=== PATIENT | female | born 1975 | race Hispanic/Latino ===

== ENCOUNTER 2020-09-26 17:50 | Emergency (ER) | payer MEDICAID ==
[~2020-09-26] VITALS: Ht 157.5 cm; Wt 77.1 kg
[2020-09-26 17:52] VITALS: BP 147/80
[2020-09-26] MEDS ORDERED: TETANUS/DIPHTHERIA TOXOID [ADULT] 0.5 ML VIAL IM ONE (18:15)
[2020-09-26] MEDS ORDERED: CEPHALEXIN 500 MG CAPSULE PO SCH (18:15)
[2020-09-26] MEDS ORDERED: HYDROCODONE/ACETAMINOPHEN 5/325 MG TAB PO ONE (18:30)
[2020-09-26] MEDS ORDERED: CEPH500B PO (19:41)
[2020-09-26 19:45] VITALS: BP 138/77
== END 2020-09-26 19:50 | disposition home or self-care (01) ==
LOC: EDH 17:50
DX: S61.012A Laceration without foreign body of left thumb without damage to nail, initial encounter (principal); I10 Essential (primary) hypertension; E78.00 Pure hypercholesterolemia, unspecified; E11.9 Type 2 diabetes mellitus without complications; F32.9 Major depressive disorder, single episode, unspecified; F41.9 Anxiety disorder, unspecified; Z98.890 Other specified postprocedural states; W26.8XXA Contact with other sharp object(s), not elsewhere classified, initial encounter; Y93.89 Activity, other specified; Y92.89 Other specified places as the place of occurrence of the external cause; Y99.8 Other external cause status
CPT/HCPCS: 12001; 73140; 90471; 90714

== ENCOUNTER 2021-06-11 21:40 | Inpatient (IN) | payer MEDICAID ==
[~2021-06-11] VITALS: Ht 157.5 cm; Wt 70.2 kg
[~2021-06-11 21:40] MED LIST: CEPH500B PO
[2021-06-11 22:17] LABS: APPEARANCE,URINE Clear (CLEAR); BILIRUBIN,URINE Negative (NEGATIVE); COLOR,URINE Yellow (YELLOW); GLUCOSE, URINE (UA) Negative (NEGATIVE); KETONES,URINE Negative (NEGATIVE); LEUKOCYTE ESTERASE ,URINE Small (NEGATIVE); NITRATE,URINE Negative (NEGATIVE); OCCULT BLOOD,URINE Small (NEGATIVE); PROTEIN,URINE Trace mg/dL (NEGATIVE); UROBILINOGEN,URINE 0.2 mg/dL (0.2-1.0)
[2021-06-11 22:22] LABS: HCG,QUAL RESULT NEGATIVE (NEGATIVE)
[2021-06-11] MEDS ORDERED: KETOROLAC 15MG/ML VIAL (15MG/ML) IV ONE (22:30)
[2021-06-11] MEDS ORDERED: ONDANSETRON 4MG INJ IVP ONE (22:30)
[2021-06-11] MEDS ORDERED: 0.9%NACL 1000ML 1,000 ML IV ONE (22:30)
[2021-06-11] MEDS ORDERED: MORPHINE 4 MG SYG IV ONE (22:30)
[2021-06-11 22:34] LABS: BASOPHILS % (AUTO) 0.4 % (0.0-5.0); EOSINOPHILS % (AUTO) 2.9 % (0.0-8.0); HEMATOCRIT 44.2 % (36-48); LYMPHOCYTES % (AUTO) 25.1 % (21.0-51.0); MEAN CORPUSCULAR HEMOGLOBIN 27.5 pg (27.0-33.0); MEAN CORPUSCULAR HGB CONC 32.8 g/dL (32.0-36.0); MEAN CORPUSCULAR VOLUME 83.9 fL (79-99); MONOCYTES % (AUTO) 7.3 % (3.0-13.0); NEUTROPHILS % (AUTO) 63.5 % (40.0-77.0); PLATELET COUNT (AUTO) 262 K/uL (130-400); RED BLOOD CELL COUNT(AUTO) 5.27 MIL/uL (4.00-5.50); RED CELL DISTRIBUTION WIDTH 13.9 % (11.0-15.5)
[2021-06-11 22:34] LABS: BACTERIA,URINE None Seen /HPF (None Seen); MUCUS,URINE Few LPF (None Seen); RBC,URINE 0-1 /HPF (0-1); SQUAMOUS EPITHELIAL CELL,UR Few /HPF (0-2)
[2021-06-11 22:46] LABS: CREATININE 0.9 mg/dL (0.5-1.5); POTASSIUM 3.9 mmol/L (3.5-5.1)
[2021-06-11 22:50] LABS: ALBUMIN 4.5 g/dL (3.5-5.0); BILIRUBIN,TOTAL 0.2 mg/dL (0.2-1.0); TOTAL PROTEIN, SERUM 7.9 g/dL (6.0-8.3)
[2021-06-12] MEDS ORDERED: CEFTRIAXONE 1G VIAL IV ONE
[2021-06-12] MEDS ORDERED: ACETAMINOPHEN 325 MG TAB PO PRN (01:30)
[2021-06-12] MEDS ORDERED: ONDANSETRON 4MG INJ IV PRN (01:30)
[2021-06-12] MEDS: 0.9%NACL 1000ML 1,000 ML IV SCH ×2 (01:39→14:18)
[2021-06-12] MEDS ORDERED: DULA0.75 SQ (02:02)
[2021-06-12] MEDS ORDERED: ATOR10 PO (02:02)
[2021-06-12] MEDS ORDERED: LISI10TA24 PO (02:02)
[2021-06-12] MEDS ORDERED: FENO40TA4 PO (02:02)
[2021-06-12] MEDS ORDERED: METF-446 PO (02:02)
[2021-06-12] MEDS ORDERED: OMEP10CA5 PO (02:02)
[2021-06-12] MEDS ORDERED: INSU100I13 SQ ×2 (03:12)
[2021-06-12 03:13] VITALS: BP 128/76
[2021-06-12] MEDS: CEFTRIAXONE 1G VIAL IVP SCH (03:30)
[2021-06-12] MEDS: MORPHINE 4 MG SYG IV PRN ×3 (04:20→23:14)
[2021-06-12 05:32] LABS: BASOPHILS % (AUTO) 0.3 % (0.0-5.0); EOSINOPHILS % (AUTO) 2.7 % (0.0-8.0); HEMATOCRIT 37.9 % (36-48); LYMPHOCYTES % (AUTO) 25.6 % (21.0-51.0); MEAN CORPUSCULAR HEMOGLOBIN 27.9 pg (27.0-33.0); MEAN CORPUSCULAR VOLUME 84.6 fL (79-99); NEUTROPHILS % (AUTO) 62.7 % (40.0-77.0); PLATELET COUNT (AUTO) 202 K/uL (130-400); RED BLOOD CELL COUNT(AUTO) 4.48 MIL/uL (4.00-5.50)
[2021-06-12 05:51] LABS: MAGNESIUM 1.6 mg/dL (1.80-2.40); PHOSPHORUS 3.9 mg/dL (2.5-4.9); POTASSIUM 4.3 mmol/L (3.5-5.1)
[2021-06-12 05:58] LABS: INR 0.99 (0.85-1.15); PROTHROMBIN TIME 10.8 SEC (9.6-11.6)
[2021-06-12 05:59] LABS: PARTIAL THROMBOPLASTIN TIME 24.8 SEC (26.3-35.5)
[2021-06-12 06:26] LABS: HEMOGLOBIN A1C 6.9 % (4.0-6.0)
[2021-06-12 08:00] VITALS: BP 100/54
[2021-06-12] MEDS: FAMOTIDINE 20MG VIAL IV SCH ×2 (08:52→20:44)
[2021-06-12 12:00] VITALS: BP 113/67
[2021-06-12 17:49] VITALS: BP 114/56
[2021-06-12 19:00] VITALS: BP 123/42
[2021-06-13] VITALS: BP 126/61
[2021-06-13] MEDS: CEFTRIAXONE 1G VIAL IVP SCH (02:56)
[2021-06-13] MEDS: 0.9%NACL 1000ML 1,000 ML IV SCH ×2 (02:56→07:30)
[2021-06-13 04:00] VITALS: BP 109/57
[2021-06-13 04:59] LABS: HEMATOCRIT 36.6 % (36-48); MEAN CORPUSCULAR HEMOGLOBIN 27.5 pg (27.0-33.0); MEAN CORPUSCULAR HGB CONC 32.5 g/dL (32.0-36.0); MEAN CORPUSCULAR VOLUME 84.5 fL (79-99); RED BLOOD CELL COUNT(AUTO) 4.33 MIL/uL (4.00-5.50); RED CELL DISTRIBUTION WIDTH 13.9 % (11.0-15.5)
[2021-06-13 05:09] LABS: CREATININE 0.8 mg/dL (0.5-1.5); POTASSIUM 3.4 mmol/L (3.5-5.1)
[2021-06-13] MEDS: MORPHINE 4 MG SYG IV PRN (05:42)
[2021-06-13 07:30] VITALS: BP 106/61
[2021-06-13] MEDS ORDERED: IOHEXOL 350 MG/ML 100ML INFUS..BTL IV ONE (07:36)
[2021-06-13] MEDS: FAMOTIDINE 20MG VIAL IV SCH ×2 (09:18→21:20)
[2021-06-13 11:00] VITALS: BP 119/68
[2021-06-13] MEDS ORDERED: LIDOCAINE HCL-MPF 1% 2ML VIAL IV PRN (12:00)
[2021-06-13] MEDS ORDERED: POTASSIUM CHLORIDE 10% ELIXIR 20 MEQ/15 ML UDCUP PO PRN (12:00)
[2021-06-13] MEDS ORDERED: MAGNESIUM 2GM PREMIX 50ML 50 ML IV PRN (12:00)
[2021-06-13] MEDS ORDERED: POTASSIUM CHLORIDE 20MEQ/100ML 100 ML IV PRN (12:00)
[2021-06-13] MEDS: MORPHINE 2 MG SYG IV PRN (13:54)
[2021-06-13] MEDS: KCL 20 MEQ ERTAB PO PRN (15:34)
[2021-06-13 16:00] VITALS: BP 116/62
[2021-06-13 20:00] VITALS: BP 131/73
[2021-06-14] VITALS (16 sets, daily range): BP systolic 103–129; BP diastolic 58–84
[2021-06-14] MEDS: MORPHINE 4 MG SYG IV PRN (00:09)
[2021-06-14] MEDS: 0.9%NACL 1000ML 1,000 ML IV SCH ×4 (00:18→23:30)
[2021-06-14] MEDS: KCL 20 MEQ ERTAB PO PRN (01:00)
[2021-06-14] MEDS: CEFTRIAXONE 1G VIAL IVP SCH (03:24)
[2021-06-14 05:04] LABS: HEMATOCRIT 37.5 % (36-48); MEAN CORPUSCULAR HEMOGLOBIN 26.9 pg (27.0-33.0); MEAN CORPUSCULAR HGB CONC 31.7 g/dL (32.0-36.0); MEAN CORPUSCULAR VOLUME 84.8 fL (79-99); RED BLOOD CELL COUNT(AUTO) 4.42 MIL/uL (4.00-5.50); RED CELL DISTRIBUTION WIDTH 13.9 % (11.0-15.5); WHITE BLOOD COUNT (AUTO) 5.6 K/uL (4.8-10.8)
[2021-06-14 05:30] LABS: INR 1.05 (0.85-1.15); PROTHROMBIN TIME 11.4 SEC (9.6-11.6)
[2021-06-14 05:31] LABS: PARTIAL THROMBOPLASTIN TIME 23.7 SEC (26.3-35.5)
[2021-06-14 05:32] LABS: CREATININE 0.9 mg/dL (0.5-1.5); MAGNESIUM 1.9 mg/dL (1.80-2.40); POTASSIUM 4.5 mmol/L (3.5-5.1)
[2021-06-14] MEDS ORDERED: IOHEXOL-350 75 ML VIAL IV ONE (08:53)
[2021-06-14] MEDS ORDERED: FENTANYL CITRATE PF 50 MCG/1 ML 2ML VIAL ONE ×2 (08:53→10:17)
[2021-06-14] MEDS ORDERED: HEPARIN 10,000 UNIT/10ML (1,000 UNIT/ML) VIAL ONE (08:53)
[2021-06-14] MEDS ORDERED: MIDAZOLAM HCL 1 MG/ML 2ML VIAL ONE ×2 (08:53→10:16)
[2021-06-14] MEDS ORDERED: LIDOCAINE HCL 1% MDV 50ML VIAL ONE (08:54)
[2021-06-14] MEDS: FAMOTIDINE 20MG VIAL IV SCH ×2 (09:00→20:56)
[2021-06-14] MEDS: KETOROLAC 30MG VIAL (30MG/ML) IV PRN ×2 (12:27→22:47)
[2021-06-14] MEDS: MORPHINE 2 MG SYG IV PRN ×2 (14:45→20:47)
[2021-06-15 00:31] VITALS: BP 123/71
[2021-06-15] MEDS: MORPHINE 2 MG SYG IV PRN ×2 (01:20→05:32)
[2021-06-15] MEDS: CEFTRIAXONE 1G VIAL IVP SCH (03:14)
[2021-06-15 04:02] VITALS: BP 110/52
[2021-06-15 04:43] LABS: HEMATOCRIT 36.5 % (36-48); MEAN CORPUSCULAR HEMOGLOBIN 26.9 pg (27.0-33.0); MEAN CORPUSCULAR HGB CONC 32.1 g/dL (32.0-36.0); MEAN CORPUSCULAR VOLUME 83.9 fL (79-99); RED BLOOD CELL COUNT(AUTO) 4.35 MIL/uL (4.00-5.50); RED CELL DISTRIBUTION WIDTH 13.9 % (11.0-15.5); WHITE BLOOD COUNT (AUTO) 6.5 K/uL (4.8-10.8)
[2021-06-15 04:48] LABS: POTASSIUM 4.5 mmol/L (3.5-5.1)
[2021-06-15 07:20] VITALS: BP 107/62
[2021-06-15] MEDS: FAMOTIDINE 20MG VIAL IV SCH (08:12)
[2021-06-15] MEDS: KETOROLAC 30MG VIAL (30MG/ML) IV PRN ×2 (08:13→16:53)
[2021-06-15] MEDS: 0.9%NACL 1000ML 1,000 ML IV SCH ×2 (08:13→16:10)
[2021-06-15 11:30] VITALS: BP_SYST 125; BP_SYST 141; BP_DIAS 56; BP_DIAS 89
[2021-06-15] MEDS: MORPHINE 4 MG SYG IV PRN (12:36)
[2021-06-15 15:30] VITALS: BP 114/66
== END 2021-06-15 17:15 | disposition home or self-care (01) | DRG 465 ==
LOC: EDH 21:40 → EDHIP 21:41 → 3DH 06-12 02:35
PROVIDERS: ADMIT Hospitalist; ATTEND Hospitalist
PROC: 0T9130Z Drainage of Left Kidney with Drainage Device, Percutaneous Approach (ICD-10-PCS; principal; 2021-06-14)
PROC: 0T9030Z Drainage of Right Kidney with Drainage Device, Percutaneous Approach (ICD-10-PCS; 2021-06-14)
DX: N13.2 Hydronephrosis with renal and ureteral calculous obstruction (principal); E11.9 Type 2 diabetes mellitus without complications; E78.5 Hyperlipidemia, unspecified; F43.10 Post-traumatic stress disorder, unspecified; E87.6 Hypokalemia; E83.42 Hypomagnesemia; I10 Essential (primary) hypertension; Z20.822 Contact with and (suspected) exposure to COVID-19; F41.9 Anxiety disorder, unspecified; F32.A Depression, unspecified; Z87.442 Personal history of urinary calculi; Z90.711 Acquired absence of uterus with remaining cervical stump
CPT/HCPCS: 10030; 36415; 50432; 74176; 74400; 80048; 80053; 81001; 81025; 82948; 83036; 83690; 83735; 84100; 84484; 85025; 85027; 85610; 85730; 86850; 86900; 86901; 87070; 87076; 87635; 93005; 99156; 99157; C1729; C1894; C9803; G0378; J0696; J1644; J1885; J2250; J2270; J2405; J3010; J3475; J3490; J7030; Q9967

== ENCOUNTER 2021-06-18 20:17 | Emergency (ER) | payer MEDICAID ==
[~2021-06-18 20:17] MED LIST changes: +ATOR10 PO; -CEPH500B PO; +DULA0.75 SQ; +FENO40TA4 PO; +INSU100I13 SQ; +LISI10TA24 PO; +METF-446 PO; +OMEP10CA5 PO
== END 2021-06-18 21:13 | disposition left against medical advice (07) ==
LOC: EDH 20:17
DX: G89.18 Other acute postprocedural pain (principal); Z53.21 Procedure and treatment not carried out due to patient leaving prior to being seen by health care provider

== ENCOUNTER 2021-06-21 22:03 | Emergency (ER) | payer MEDICAID ==
[~2021-06-21] VITALS: Ht 157.5 cm; Wt 69.4 kg
[2021-06-21 22:27] LABS: APPEARANCE,URINE Turbid (CLEAR); COLOR,URINE Red (YELLOW)
[2021-06-21 22:28] LABS: BILIRUBIN,URINE Small (NEGATIVE); GLUCOSE, URINE (UA) Negative (NEGATIVE); KETONES,URINE Negative (NEGATIVE); LEUKOCYTE ESTERASE ,URINE Moderate (NEGATIVE); NITRATE,URINE Negative (NEGATIVE); OCCULT BLOOD,URINE Large (NEGATIVE); PROTEIN,URINE 300 mg/dL (NEGATIVE); UROBILINOGEN,URINE 0.2 mg/dL (0.2-1.0)
[2021-06-21] MEDS ORDERED: HYDROCODONE/ACETAMINOPHEN 10/325 MG TAB PO ONE (22:30)
[2021-06-21 22:41] LABS: BACTERIA,URINE Few /HPF (None Seen); RBC,URINE >100 /HPF (0-1); SQUAMOUS EPITHELIAL CELL,UR 0-2 /HPF (0-2)
[2021-06-21] MEDS ORDERED: PHEN-847 PO (22:45)
[2021-06-21] MEDS ORDERED: CEPH500B PO (22:45)
[2021-06-21] MEDS ORDERED: CEFTRIAXONE 1G VIAL IM ONE (23:00)
[2021-06-21] MEDS ORDERED: PHENAZOPYRIDINE HCL 200 MG TABLET PO ONE (23:00)
[2021-06-21 23:33] VITALS: BP 119/72
== END 2021-06-21 23:34 | disposition home or self-care (01) ==
LOC: EDH 22:03
DX: T83.092A Other mechanical complication of nephrostomy catheter, initial encounter (principal); N39.0 Urinary tract infection, site not specified; I10 Essential (primary) hypertension; E78.00 Pure hypercholesterolemia, unspecified; E11.9 Type 2 diabetes mellitus without complications; Z79.4 Long term (current) use of insulin; Z79.899 Other long term (current) drug therapy; Y83.8 Other surgical procedures as the cause of abnormal reaction of the patient, or of later complication, without mention of misadventure at the time of the procedure; Y92.89 Other specified places as the place of occurrence of the external cause
CPT/HCPCS: 81001; 87077; 87088; 87186; 96372; 99283; J0696

== ENCOUNTER 2022-02-27 10:15 | Emergency (ER) | payer MEDICAID ==
[~2022-02-27] VITALS: Ht 157.5 cm; Wt 70.3 kg
[~2022-02-27 10:15] MED LIST changes: +CEPH500B PO; +PHEN-847 PO
[2022-02-27 11:37] LABS: BASOPHILS % (AUTO) 0.4 % (0.0-5.0); EOSINOPHILS % (AUTO) 3.7 % (0.0-8.0); HEMATOCRIT 42.3 % (36-48); LYMPHOCYTES % (AUTO) 23.7 % (21.0-51.0); MEAN CORPUSCULAR HEMOGLOBIN 26.1 pg (27.0-33.0); MEAN CORPUSCULAR HGB CONC 31.9 g/dL (32.0-36.0); MEAN CORPUSCULAR VOLUME 81.7 fL (79-99); MONOCYTES % (AUTO) 6.7 % (3.0-13.0); NEUTROPHILS % (AUTO) 64.9 % (40.0-77.0); PLATELET COUNT (AUTO) 236 K/uL (130-400); RED BLOOD CELL COUNT(AUTO) 5.18 MIL/uL (4.00-5.50); RED CELL DISTRIBUTION WIDTH 14.6 % (11.0-15.5); WHITE BLOOD COUNT (AUTO) 7.9 K/uL (4.8-10.8)
[2022-02-27 11:46] LABS: APPEARANCE,URINE CLOUDY (CLEAR); BILIRUBIN,URINE NEGATIVE (NEGATIVE); COLOR,URINE YELLOW (YELLOW); GLUCOSE, URINE (UA) NEGATIVE (NEGATIVE); KETONES,URINE NEGATIVE (NEGATIVE); LEUKOCYTE ESTERASE ,URINE 25 Leu/uL (NEGATIVE); NITRATE,URINE NEGATIVE (NEGATIVE); OCCULT BLOOD,URINE NEGATIVE (NEGATIVE); PROTEIN,URINE 30 mg/dL (NEGATIVE); UROBILINOGEN,URINE 0.2 mg/dL (0.2-1.0)
[2022-02-27 11:51] LABS: ALBUMIN 4.2 g/dL (3.5-5.0); CREATININE 1.1 mg/dL (0.5-1.5); POTASSIUM 4.2 mmol/L (3.5-5.1); TOTAL PROTEIN, SERUM 7.5 g/dL (6.0-8.3)
[2022-02-27 11:52] LABS: BACTERIA,URINE RARE /HPF (None Seen); CALCIUM OXALATE CRYSTALS,UR FEW /LPF (None Seen); MUCUS,URINE RARE LPF (None Seen); SQUAMOUS EPITHELIAL CELL,UR MANY /HPF (0-2); YEAST,URINE BUDDING RARE /HPF (None Seen)
[2022-02-27] MEDS ORDERED: MORPHINE 4 MG SYG IVP ONE (12:30)
[2022-02-27] MEDS ORDERED: ONDANSETRON 4MG INJ IVP ONE (12:30)
[2022-02-27] MEDS ORDERED: IBUP-2070 PO (19:16)
[2022-02-27] MEDS ORDERED: ONDA4TAB10 PO (19:16)
[2022-02-27] MEDS ORDERED: CIPR-278 PO (19:16)
[2022-02-27] MEDS ORDERED: CEFTRIAXONE 1G VIAL ONE (19:23)
[2022-02-27] MEDS ORDERED: KETOROLAC 15MG/ML VIAL (15MG/ML) ONE (19:23)
[2022-02-27] MEDS ORDERED: CEFTRIAXONE 1G VIAL IVP ONE (19:30)
[2022-02-27] MEDS ORDERED: KETOROLAC 15MG/ML VIAL (15MG/ML) IV ONE (19:30)
[2022-02-27 19:37] VITALS: BP 114/58
== END 2022-02-27 19:53 | disposition home or self-care (01) ==
LOC: EDH 10:15
DX: N30.00 Acute cystitis without hematuria (principal); D25.9 Leiomyoma of uterus, unspecified; R10.31 Right lower quadrant pain; F41.9 Anxiety disorder, unspecified; E11.9 Type 2 diabetes mellitus without complications; E78.00 Pure hypercholesterolemia, unspecified; I10 Essential (primary) hypertension; Z79.84 Long term (current) use of oral hypoglycemic drugs; Z87.442 Personal history of urinary calculi
CPT/HCPCS: 99284; 76856; 74176; 96374; 96375; 80053; 83690; 85025; 87088; 81001; 36415; 76857; J0696; J2405; J2270; J1885

== ENCOUNTER 2022-03-01 19:11 | Inpatient (IN) | payer MEDICAID ==
[~2022-03-01] VITALS: Ht 157.5 cm; Wt 70.1 kg
[~2022-03-01 19:11] MED LIST changes: +CIPR-278 PO; +IBUP-2070 PO; +ONDA4TAB10 PO
[2022-03-01] MEDS ORDERED: FAMOTIDINE 20MG VIAL IV ONE ×2 (20:34→21:00)
[2022-03-01] MEDS ORDERED: ONDANSETRON 4MG INJ ONE (20:34)
[2022-03-01] MEDS ORDERED: PROCHLORPERAZINE 10MG/2ML INJ ONE (20:34)
[2022-03-01 20:45] LABS: BASOPHILS % (AUTO) 0.1 % (0.0-5.0); EOSINOPHILS % (AUTO) 1.1 % (0.0-8.0); HEMATOCRIT 47.1 % (36-48); LYMPHOCYTES % (AUTO) 8.9 % (21.0-51.0); MEAN CORPUSCULAR HEMOGLOBIN 26.2 pg (27.0-33.0); MEAN CORPUSCULAR HGB CONC 32.3 g/dL (32.0-36.0); MEAN CORPUSCULAR VOLUME 81.2 fL (79-99); MONOCYTES % (AUTO) 7.8 % (3.0-13.0); NEUTROPHILS % (AUTO) 81.5 % (40.0-77.0); PLATELET COUNT (AUTO) 257 K/uL (130-400); RED CELL DISTRIBUTION WIDTH 14.7 % (11.0-15.5); WHITE BLOOD COUNT (AUTO) 15.9 K/uL (4.8-10.8)
[2022-03-01] MEDS ORDERED: 0.9%NACL 1000ML 1,000 ML IV SCH (21:00)
[2022-03-01] MEDS ORDERED: ONDANSETRON 4MG INJ IVP ONE (21:00)
[2022-03-01] MEDS ORDERED: PROCHLORPERAZINE EDISYLATE 5 MG/ML 2 ML VIAL IVP ONE (21:00)
[2022-03-01 21:02] LABS: APPEARANCE,URINE CLOUDY (CLEAR); BILIRUBIN,URINE NEGATIVE (NEGATIVE); COLOR,URINE YELLOW (YELLOW); GLUCOSE, URINE (UA) NEGATIVE (NEGATIVE); KETONES,URINE NEGATIVE (NEGATIVE); LEUKOCYTE ESTERASE ,URINE 25 Leu/uL (NEGATIVE); NITRATE,URINE NEGATIVE (NEGATIVE); OCCULT BLOOD,URINE LARGE (NEGATIVE); PH,URINE 6.5 (5.0-8.0); PROTEIN,URINE 20 mg/dL (NEGATIVE); UROBILINOGEN,URINE 0.2 mg/dL (0.2-1.0)
[2022-03-01 21:03] LABS: CREATININE 0.9 mg/dL (0.5-1.5); TOTAL PROTEIN, SERUM 8.2 g/dL (6.0-8.3)
[2022-03-01 21:09] LABS: BACTERIA,URINE MOD /HPF (None Seen); CALCIUM OXALATE CRYSTALS,UR FEW /LPF (None Seen); MUCUS,URINE FEW LPF (None Seen); RBC,URINE >100 /HPF (0-1); SQUAMOUS EPITHELIAL CELL,UR FEW /HPF (0-2); WBC,URINE 26-50 /HPF (0-1)
[2022-03-01] MEDS ORDERED: IOHEXOL 350 MG/ML 100ML INFUS..BTL IV ONE (21:16)
[2022-03-01] MEDS ORDERED: KETOROLAC 15MG/ML VIAL (15MG/ML) ONE (22:22)
[2022-03-01] MEDS ORDERED: KETOROLAC 15MG/ML VIAL (15MG/ML) IV ONE (22:30)
[2022-03-02] MEDS ORDERED: CEFTRIAXONE 2GM VIAL IVP ONE (00:30)
[2022-03-02] MEDS ORDERED: KETOROLAC 30MG VIAL (30MG/ML) IVP PRN (01:00)
[2022-03-02] MEDS ORDERED: DOCUSATE SODIUM 100 MG CAP PO PRN (02:00)
[2022-03-02] MEDS ORDERED: CLONIDINE HCL 0.1 MG TABLET PO PRN (02:00)
[2022-03-02] MEDS ORDERED: TEMAZEPAM 15 MG CAPSULE PO PRN (02:00)
[2022-03-02] MEDS ORDERED: LACTULOSE 20 GM/30 ML UDCUP PO PRN (02:00)
[2022-03-02] MEDS ORDERED: HYDRALAZINE 20MG/ML VIAL IV PRN ×2 (02:00→09:30)
[2022-03-02] MEDS ORDERED: LABETALOL 20MG SYG IV PRN (02:00)
[2022-03-02] MEDS: LACTATED RINGERS 1000ML 1,000 ML IV SCH ×3 (02:51→18:48)
[2022-03-02] MEDS ORDERED: ACETAMINOPHEN 325 MG TAB PO PRN (03:00)
[2022-03-02] MEDS ORDERED: HYDROMORPHONE 0.5 MG SYG (0.5MG/0.5ML) IVP PRN (03:00)
[2022-03-02] MEDS ORDERED: LISINOPRIL 10 MG TABLET PO SCH (09:00)
[2022-03-02] MEDS ORDERED: MORPHINE 2 MG SYG IVP SCH (09:30)
[2022-03-02 09:47] LABS: HEMATOCRIT 37.3 % (36-48); MEAN CORPUSCULAR HEMOGLOBIN 26.1 pg (27.0-33.0); MEAN CORPUSCULAR HGB CONC 32.7 g/dL (32.0-36.0); MEAN CORPUSCULAR VOLUME 79.9 fL (79-99); PLATELET COUNT (AUTO) 196 K/uL (130-400); RED BLOOD CELL COUNT(AUTO) 4.67 MIL/uL (4.00-5.50); RED CELL DISTRIBUTION WIDTH 15.1 % (11.0-15.5); WHITE BLOOD COUNT (AUTO) 9.5 K/uL (4.8-10.8)
[2022-03-02 09:58] LABS: CREATININE 1.1 mg/dL (0.5-1.5); POTASSIUM 4.1 mmol/L (3.5-5.1); PROTHROMBIN TIME 10.9 SEC (9.6-11.6)
[2022-03-02 10:10] LABS: ALBUMIN 3.8 g/dL (3.5-5.0); MAGNESIUM 1.7 mg/dL (1.80-2.40); PHOSPHORUS 3.6 mg/dL (2.5-4.9); TOTAL PROTEIN, SERUM 6.7 g/dL (6.0-8.3)
[2022-03-02 10:11] LABS: AMYLASE 439 U/L (25-115); LIPASE 2780 U/L (114-286)
[2022-03-02] MEDS ORDERED: 0.9%NACL 1000ML 1,002 ML IV SCH (11:00)
[2022-03-02 11:16] LABS: AMPHET/METH SCREEN,URINE NEGATIVE (NEGATIVE); BARBITURATE SCREEN, URINE NEGATIVE (NEGATIVE); BENZODIAZEPINES SCREEN,URINE NEGATIVE (NEGATIVE); CANNABINOID SCREEN,URINE NEGATIVE (NEGATIVE); COCAINE SCREEN,URINE NEGATIVE (NEGATIVE); OPIATE SCREEN,URINE NEGATIVE (NEGATIVE); PHENCYCLIDINE SCREEN,URINE NEGATIVE (NEGATIVE)
[2022-03-02] MEDS ORDERED: METOCLOPRAMIDE 10 MG/2 ML VIAL IVP SCH (11:30)
[2022-03-02] MEDS ORDERED: MAGNESIUM 2GM PREMIX 50ML 50 ML IV PRN (11:30)
[2022-03-02 11:37] LABS: EOSINOPHILS % (MANUAL) 3 % (1-6); LYMPHOCYTES % (MANUAL) 11 % (22-44); MONOCYTES % (MANUAL) 5 % (2-9); SEGMENTED NEUTROPHILS % 81 % (40-70)
[2022-03-02 11:39] LABS: MAN.DIFF COMMENT-IMPRESSION MANUAL DIFFERENTIAL
[2022-03-02 11:40] LABS: PLATELET MORPHOLOGY COMMENT ADEQUATE
[2022-03-02] MEDS: ZOSYN 3.375GM +NS 50ML IV SCH ×2 (14:05→21:18)
[2022-03-02] MEDS: MORPHINE 4 MG SYG IVP PRN ×3 (14:05→23:14)
[2022-03-02] MEDS ORDERED: CEFTRIAXONE 2GM VIAL IVPB SCH (20:00)
[2022-03-02 20:27] VITALS: BP 107/68
[2022-03-02] MEDS ORDERED: CEFEPIME HCL 1 GM VIAL IVP SCH (22:00)
[2022-03-02 23:40] VITALS: BP 123/74
[2022-03-03] MEDS: LACTATED RINGERS 1000ML 1,000 ML IV SCH ×4 (00:24→16:00)
[2022-03-03] MEDS: MORPHINE 2 MG SYG IVP PRN ×2 (03:40→18:51)
[2022-03-03 04:11] LABS: MEAN CORPUSCULAR HEMOGLOBIN 26.2 pg (27.0-33.0); MEAN CORPUSCULAR HGB CONC 31.4 g/dL (32.0-36.0); MEAN CORPUSCULAR VOLUME 83.3 fL (79-99); RED BLOOD CELL COUNT(AUTO) 4.2 MIL/uL (4.00-5.50); RED CELL DISTRIBUTION WIDTH 15.1 % (11.0-15.5); WHITE BLOOD COUNT (AUTO) 8.1 K/uL (4.8-10.8)
[2022-03-03 04:12] VITALS: BP 119/69
[2022-03-03 04:30] LABS: ALBUMIN 3.3 g/dL (3.5-5.0); BILIRUBIN,DIRECT 0.1 mg/dL (0.0-0.3); MAGNESIUM 1.9 mg/dL (1.80-2.40); POTASSIUM 3.9 mmol/L (3.5-5.1); TOTAL PROTEIN, SERUM 6.3 g/dL (6.0-8.3)
[2022-03-03] MEDS: ZOSYN 3.375GM +NS 50ML IV SCH ×3 (05:27→20:52)
[2022-03-03 07:30] VITALS: BP 108/68
[2022-03-03] MEDS: MORPHINE 4 MG SYG IVP PRN ×3 (07:52→23:23)
[2022-03-03] MEDS: PANTOPRAZOLE 40 MG/VIAL IVP SCH (07:52)
[2022-03-03] MEDS: FLUCONAZOLE 400 MG/NS 200 ML 200 ML IV SCH (07:53)
[2022-03-03 11:30] VITALS: BP 111/65
[2022-03-03 15:30] VITALS: BP 87/44
[2022-03-03 20:00] VITALS: BP 99/55
[2022-03-04] VITALS: BP 116/93
[2022-03-04] MEDS: LACTATED RINGERS 1000ML 1,000 ML IV SCH ×3 (02:29→22:29)
[2022-03-04 04:00] VITALS: BP 106/68
[2022-03-04 04:44] LABS: HEMATOCRIT 31.5 % (36-48); MEAN CORPUSCULAR HEMOGLOBIN 26.2 pg (27.0-33.0); MEAN CORPUSCULAR VOLUME 79.3 fL (79-99); RED BLOOD CELL COUNT(AUTO) 3.97 MIL/uL (4.00-5.50); RED CELL DISTRIBUTION WIDTH 14.8 % (11.0-15.5); WHITE BLOOD COUNT (AUTO) 6.1 K/uL (4.8-10.8)
[2022-03-04 05:09] LABS: ALBUMIN 3.2 g/dL (3.5-5.0); BILIRUBIN,DIRECT 0.1 mg/dL (0.0-0.3); CREATININE 1.1 mg/dL (0.5-1.5); MAGNESIUM 1.9 mg/dL (1.80-2.40); POTASSIUM 4.3 mmol/L (3.5-5.1); TOTAL PROTEIN, SERUM 6.4 g/dL (6.0-8.3)
[2022-03-04] MEDS: ZOSYN 3.375GM +NS 50ML IV SCH ×3 (05:11→20:26)
[2022-03-04] MEDS: MORPHINE 4 MG SYG IVP PRN ×4 (05:12→20:26)
[2022-03-04] MEDS: ONDANSETRON 4MG INJ IVP PRN (05:20)
[2022-03-04 07:30] VITALS: BP 98/67
[2022-03-04] MEDS: PANTOPRAZOLE 40 MG/VIAL IVP SCH (08:46)
[2022-03-04] MEDS: FLUCONAZOLE 400 MG/NS 200 ML 200 ML IV SCH (08:46)
[2022-03-04 11:00] VITALS: BP 112/64
[2022-03-04 15:30] VITALS: BP 103/64
[2022-03-04] MEDS ORDERED: KETOROLAC 15MG/ML VIAL (15MG/ML) IM PRN (16:30)
[2022-03-04 20:00] VITALS: BP 114/69
[2022-03-04] MEDS ORDERED: KETOROLAC 15MG/ML VIAL (15MG/ML) IV PRN (22:30)
[2022-03-05] VITALS (24 sets, daily range): BP systolic 99–152; BP diastolic 43–78
[2022-03-05] MEDS: MORPHINE 4 MG SYG IVP PRN ×3 (01:24→20:14)
[2022-03-05 04:17] LABS: HEMATOCRIT 33.8 % (36-48); MEAN CORPUSCULAR HEMOGLOBIN 26.1 pg (27.0-33.0); MEAN CORPUSCULAR HGB CONC 31.7 g/dL (32.0-36.0); MEAN CORPUSCULAR VOLUME 82.4 fL (79-99); RED BLOOD CELL COUNT(AUTO) 4.1 MIL/uL (4.00-5.50); RED CELL DISTRIBUTION WIDTH 14.6 % (11.0-15.5); WHITE BLOOD COUNT (AUTO) 5.9 K/uL (4.8-10.8)
[2022-03-05 04:38] LABS: ALBUMIN 3.2 g/dL (3.5-5.0); BILIRUBIN,DIRECT 0.1 mg/dL (0.0-0.3); POTASSIUM 4.2 mmol/L (3.5-5.1); TOTAL PROTEIN, SERUM 6.6 g/dL (6.0-8.3)
[2022-03-05] MEDS: ZOSYN 3.375GM +NS 50ML IV SCH ×3 (05:24→20:14)
[2022-03-05] MEDS: PANTOPRAZOLE 40 MG/VIAL IVP SCH (08:24)
[2022-03-05] MEDS: FLUCONAZOLE 400 MG/NS 200 ML 200 ML IV SCH (08:25)
[2022-03-05] MEDS ORDERED: BUPIVACAINE/PF 0.5% 30ML VIAL ONE (09:52)
[2022-03-05] MEDS: LACTATED RINGERS 1000ML 1,000 ML IV SCH (11:08)
[2022-03-05] MEDS ORDERED: CEFTRIAXONE 1G VIAL ONE (11:16)
[2022-03-05] MEDS ORDERED: SUCCINYLCHOLINE CHLORIDE 20 MG/ML 10 ML VIAL ONE (11:18)
[2022-03-05] MEDS ORDERED: ONDANSETRON 4MG INJ ONE (11:18)
[2022-03-05] MEDS ORDERED: MIDAZOLAM HCL 1 MG/ML 2ML VIAL ONE (11:18)
[2022-03-05] MEDS ORDERED: DEXAMETHASONE SOD PHOSPHATE 4 MG/ML 1ML VIAL ONE (11:18)
[2022-03-05] MEDS ORDERED: PROPOFOL 10 MG/ML 20ML VIAL IV ONE (11:19)
[2022-03-05] MEDS ORDERED: GLYCOPYRROLATE 1 MG/5 ML SYRINGE ONE (11:19)
[2022-03-05] MEDS ORDERED: NEOSTIGMINE 5MG/5ML SYR IV ONE (11:19)
[2022-03-05] MEDS ORDERED: ROCURONIUM 10MG/1ML SYR 10 MG/ML ML ONE (11:19)
[2022-03-05] MEDS ORDERED: FENTANYL CITRATE PF 50 MCG/1 ML 2ML VIAL ONE (11:19)
[2022-03-05] MEDS ORDERED: LIDOCAINE HCL-MPF 2% 5ML VIAL ONE (11:20)
[2022-03-05] MEDS ORDERED: KETOROLAC 30MG VIAL (30MG/ML) IVP PRN (16:00)
[2022-03-05] MEDS: ONDANSETRON 4MG INJ IVP PRN (17:07)
[2022-03-06] VITALS: BP 135/71
[2022-03-06] MEDS: ONDANSETRON 4MG INJ IVP PRN (00:04)
[2022-03-06] MEDS: MORPHINE 4 MG SYG IVP PRN ×2 (00:24→04:47)
[2022-03-06] MEDS: LACTATED RINGERS 1000ML 1,000 ML IV SCH (01:14)
[2022-03-06 04:00] VITALS: BP 113/70
[2022-03-06] MEDS: ZOSYN 3.375GM +NS 50ML IV SCH ×2 (04:47→12:12)
[2022-03-06 05:09] LABS: ALBUMIN 3.2 g/dL (3.5-5.0); CREATININE 0.9 mg/dL (0.5-1.5); POTASSIUM 4.1 mmol/L (3.5-5.1); TOTAL PROTEIN, SERUM 6.6 g/dL (6.0-8.3)
[2022-03-06 05:50] LABS: BASOPHILS % (AUTO) 0.2 % (0.0-5.0); EOSINOPHILS % (AUTO) 0.2 % (0.0-8.0); HEMATOCRIT 31.7 % (36-48); MEAN CORPUSCULAR HEMOGLOBIN 25.8 pg (27.0-33.0); MEAN CORPUSCULAR HGB CONC 31.5 g/dL (32.0-36.0); MEAN CORPUSCULAR VOLUME 81.7 fL (79-99); MONOCYTES % (AUTO) 6.3 % (3.0-13.0); NEUTROPHILS % (AUTO) 81.9 % (40.0-77.0); PLATELET COUNT (AUTO) 167 K/uL (130-400); RED BLOOD CELL COUNT(AUTO) 3.88 MIL/uL (4.00-5.50); RED CELL DISTRIBUTION WIDTH 14.4 % (11.0-15.5); WHITE BLOOD COUNT (AUTO) 5.7 K/uL (4.8-10.8)
[2022-03-06 07:30] VITALS: BP 133/84
[2022-03-06] MEDS: FLUCONAZOLE 400 MG/NS 200 ML 200 ML IV SCH (10:30)
[2022-03-06] MEDS: PANTOPRAZOLE 40 MG/VIAL IVP SCH (10:30)
[2022-03-06] MEDS ORDERED: ACETAMINOPHEN WITH CODEINE 1 TAB TAB PO PRN (10:30)
[2022-03-06 11:30] VITALS: BP 129/84
[2022-03-06] MEDS ORDERED: LEVO750T68 PO (15:35)
== END 2022-03-06 18:00 | disposition home or self-care (01) | DRG 263 ==
LOC: EDH 19:11 → EDHIP 19:12 → OBSVTOIN 19:12 → 3AH 03-02 14:20 → EDHIP 03-02 15:33 → 3DH 03-02 18:30
PROVIDERS: ADMIT Internal Medicine; ATTEND Internal Medicine
PROC: 0FT44ZZ Resection of Gallbladder, Percutaneous Endoscopic Approach (ICD-10-PCS; principal; 2022-03-05 12:02)
DX: K80.20 Calculus of gallbladder without cholecystitis without obstruction (principal); K85.10 Biliary acute pancreatitis without necrosis or infection; N13.6 Pyonephrosis; E11.9 Type 2 diabetes mellitus without complications; E78.00 Pure hypercholesterolemia, unspecified; K21.9 Gastro-esophageal reflux disease without esophagitis; Z20.822 Contact with and (suspected) exposure to COVID-19; K66.0 Peritoneal adhesions (postprocedural) (postinfection); I10 Essential (primary) hypertension; Z87.442 Personal history of urinary calculi; Z90.710 Acquired absence of both cervix and uterus
CPT/HCPCS: 36415; 71045; 74176; 74177; 74181; 76856; 76857; 80048; 80053; 80076; 80305; 81001; 82150; 82550; 82948; 83605; 83690; 83735; 83874; 84100; 84484; 84703; 85025; 85027; 85610; 85730; 87040; 87088; 87635; 93005; 96374; 96375; C9113; G0378; J0330; J0696; J0780; J1100; J1170; J1450; J1885; J2250; J2270; J2405; J2543; J2704; J2710; J3010; J3475; J3490; J7030; J7120; Q9967

== ENCOUNTER 2022-08-08 22:54 | Emergency (ER) | payer MEDICAID ==
[~2022-08-08] VITALS: Ht 157.5 cm; Wt 67.6 kg
[~2022-08-08 22:54] MED LIST changes: -CEPH500B PO; -CIPR-278 PO; +LEVO750T68 PO
[2022-08-08 22:55] VITALS: BP 115/61
[2022-08-08] MEDS ORDERED: CLIN-141 PO (23:44)
== END 2022-08-08 23:54 | disposition home or self-care (01) ==
LOC: EDH 22:54
DX: L03.114 Cellulitis of left upper limb (principal); E11.9 Type 2 diabetes mellitus without complications; E78.00 Pure hypercholesterolemia, unspecified; I10 Essential (primary) hypertension; Z79.84 Long term (current) use of oral hypoglycemic drugs; Z79.899 Other long term (current) drug therapy; Z88.5 Allergy status to narcotic agent; Z88.8 Allergy status to other drugs, medicaments and biological substances

== ENCOUNTER 2023-08-13 20:18 | Emergency (ER) | payer BC, MEDICAID ==
[~2023-08-13] VITALS: Ht 157.5 cm; Wt 68.0 kg
[~2023-08-13 20:18] MED LIST changes: +CLIN-141 PO
[2023-08-13] MEDS: 0.9%NACL 1000ML 1,000 ML IV ONE ×2 (20:48→21:55)
[2023-08-13] MEDS: ONDANSETRON 4MG INJ IVP ONE ×2 (20:48→22:04)
[2023-08-13] MEDS: KETOROLAC 30MG VIAL (30MG/ML) IVP ONE ×2 (20:48→22:05)
[2023-08-13 20:49] LABS: BASOPHILS # (AUTO) 0.05 K/uL (0.00-0.20); BASOPHILS % (AUTO) 0.4 % (0.0-5.0); EOSINOPHILS # (AUTO) 0.27 K/uL (0.00-0.70); EOSINOPHILS % (AUTO) 2.3 % (0.0-8.0); HEMATOCRIT 43.8 % (36-48); IMMATURE GRANULOCYTE ABSOLUTE 0.09 K/uL (0-1); LYMPHOCYTES # (AUTO) 2.5 K/uL (1.0-4.8); LYMPHOCYTES % (AUTO) 21.6 % (21.0-51.0); MEAN CORPUSCULAR HEMOGLOBIN 27.8 pg (27.0-33.0); MEAN CORPUSCULAR HGB CONC 33.3 g/dL (32.0-36.0); MEAN CORPUSCULAR VOLUME 83.4 fL (79-99); MONOCYTES # (AUTO) 0.9 K/uL (0.1-1.0); NEUTROPHILS # (AUTO) 7.8 K/uL (1.8-7.7); NEUTROPHILS % (AUTO) 66.9 % (40.0-77.0); PLATELET COUNT (AUTO) 203 K/uL (130-400); RED BLOOD CELL COUNT(AUTO) 5.25 MIL/uL (4.00-5.50); RED CELL DISTRIBUTION WIDTH 13.5 % (11.0-15.5); WHITE BLOOD COUNT (AUTO) 11.7 K/uL (4.8-10.8)
[2023-08-13 21:03] LABS: CREATININE 1.1 mg/dL (0.5-1.0); POTASSIUM 3.8 mmol/L (3.5-5.1)
[2023-08-13 21:07] LABS: ALBUMIN 3.8 g/dL (3.5-5.0); BILIRUBIN,TOTAL 0.3 mg/dL (0.2-1.0); TOTAL PROTEIN, SERUM 7.1 g/dL (6.0-8.3)
[2023-08-13] MEDS: TAMSULOSIN HCL 0.4 MG CAP.ER.24H PO ONE (21:56)
[2023-08-13] MEDS: IBUPROFEN 800 MG TAB PO ONE (21:56)
[2023-08-13 22:02] LABS: APPEARANCE,URINE CLOUDY (CLEAR); BILIRUBIN,URINE 1 mg/dL (NEGATIVE); COLOR,URINE DARK-YELLOW (YELLOW); GLUCOSE, URINE (UA) NEGATIVE (NEGATIVE); KETONES,URINE NEGATIVE (NEGATIVE); LEUKOCYTE ESTERASE ,URINE 500 Leu/uL (NEGATIVE); NITRATE,URINE 1+ (NEGATIVE); OCCULT BLOOD,URINE SMALL (NEGATIVE); PROTEIN,URINE 100 mg/dL (NEGATIVE)
[2023-08-13 22:03] LABS: ADD UA MICROSCOPIC YES
[2023-08-13 22:08] LABS: BACTERIA,URINE FEW /HPF (None Seen); CALCIUM OXALATE CRYSTALS,UR FEW /LPF (None Seen); MUCUS,URINE RARE LPF (None Seen); RBC,URINE 26-50 /HPF (0-1); SQUAMOUS EPITHELIAL CELL,UR FEW /HPF (0-2); UNCLASSIFIED CRYSTAL 6 /HPF (None Seen); WBC,URINE 26-50 /HPF (0-1); YEAST,URINE BUDDING FEW /HPF (None Seen)
[2023-08-13] MEDS: CEFTRIAXONE 1G VIAL IV ONE (22:45)
[2023-08-13] MEDS: CEFTRIAXONE 1G VIAL ONE (22:47)
[2023-08-13] MEDS ORDERED: KETOROLAC 30MG VIAL (30MG/ML) IVP ONE (23:00)
[2023-08-13] MEDS ORDERED: PHEN-776 PO (23:17)
[2023-08-13] MEDS ORDERED: AMOX1TAB16 PO (23:17)
[2023-08-13] MEDS ORDERED: IBUP-2077 PO (23:17)
[2023-08-13] MEDS: MORPHINE 4 MG SYG IVP ONE (23:22)
[2023-08-14 00:06] VITALS: BP 126/79; PULSE 75; RESP 18; O2SAT 98
== END 2023-08-14 00:07 | disposition home or self-care (01) ==
LOC: EDH 20:18
DX: N13.2 Hydronephrosis with renal and ureteral calculous obstruction (principal); N23 Unspecified renal colic; N30.01 Acute cystitis with hematuria; E86.0 Dehydration; I10 Essential (primary) hypertension; E11.9 Type 2 diabetes mellitus without complications; E78.00 Pure hypercholesterolemia, unspecified; Z79.84 Long term (current) use of oral hypoglycemic drugs; Z79.899 Other long term (current) drug therapy; Z90.710 Acquired absence of both cervix and uterus; Z88.8 Allergy status to other drugs, medicaments and biological substances
CPT/HCPCS: 99284; 74176; 96374; 96375; 96361; 80053; 83690; 85025; 87088; 81001; 36415; 96376; J7030 ×2; J0696; J2405 ×2; J2270; J1885 ×2